=== PATIENT | female | born 1985 | race Caucasian/White ===

== ENCOUNTER → 2017-03-31 | Outpatient (CLI) | payer OTHER ==
[2017-03-31 19:15] LABS: BASO # 0.1 10^3/uL (0.0-0.2); BASO % 0.6 % (0.0-1.0); EOS # 0.1 10^3/uL (0.0-0.50); EOS % 1.3 % (0.0-3.0); HEMOGLOBIN 12.2 g/dl (12.0-16.0); IMMATURE GRANULOCYTE # 0.1 10^3/uL (0-0); IMMATURE GRANULOCYTE % 0.8 % (0-0); LYMPH % 23.1 % (24.0-44.0); MEAN CORPUSCULAR HEMOGLOBIN 30.3 pg (27.0-33.0); MEAN CORPUSCULAR HGB CONC 34.9 g/dl (32.0-36.5); MEAN CORPUSCULAR VOLUME 86.8 fl (80.0-96.0); NEUTROPHILS # 5.5 10^3/uL (1.8-7.7); NEUTROPHILS % 63.2 % (36.0-66.0); PLATELET COUNT, AUTOMATED 301 10^3/uL (150-450); RED BLOOD COUNT 4.03 10^6/uL (4.00-5.40); RED CELL DISTRIBUTION WIDTH 13.3 % (11.5-14.5); WHITE BLOOD COUNT 8.7 10^3/uL (4.0-10.0)
[2017-03-31 21:37] LABS: CHLAMYDIA DNA AMPLIFICATION NEGATIVE (NEGATIVE); GC DNA AMPLIFICATION NEGATIVE (NEGATIVE)
[2017-04-01 11:34] LABS: RUBELLA IgG QUALITATIVE IMMUNE (IMMUNE)
[2017-04-01 11:36] LABS: HBsAg Prenatal NEGATIVE (NEGATIVE)
[2017-04-01 12:02] LABS: HEPATITIS C VIRUS ABY INDEX 0.1 INDEX (<0.8)
[2017-04-01 12:03] LABS: HIV 1&2 SCREEN CENTAUR NEGATIVE (NEGATIVE)
== END ==
LOC: M WUC 15:28
DX: Z34.81 Encounter for supervision of other normal pregnancy, first trimester (principal); Z3A.09 9 weeks gestation of pregnancy
CPT/HCPCS: 86762

== ENCOUNTER → 2017-05-16 | Outpatient (CLI) | payer OTHER | LOC: M RAD 12:48 | DX: Z36.89 Encounter for other specified antenatal screening (principal); Z3A.18 18 weeks gestation of pregnancy | CPT/HCPCS: 76811 ==

== ENCOUNTER → 2017-06-06 | Outpatient (CLI) | payer OTHER | LOC: M RAD 17:09 | DX: Z34.82 Encounter for supervision of other normal pregnancy, second trimester (principal); Z3A.21 21 weeks gestation of pregnancy | CPT/HCPCS: 76816 ==

== ENCOUNTER → 2017-07-15 | Outpatient (CLI) | payer OTHER ==
[2017-07-15 07:49] LABS: GLUCOSE, FASTING 80 MG/DL (LESS THAN 95)
[2017-07-15 09:36] LABS: 1 HR GLUCOSE 192 MG/DL (LESS THAN 180)
[2017-07-15 10:15] LABS: 2 HR GLUCOSE 179 MG/DL (LESS THAN 155)
[2017-07-15 11:26] LABS: 3 HR GLUCOSE 101 MG/DL (LESS THAN 140)
== END ==
LOC: M LAB 06:52
DX: Z34.82 Encounter for supervision of other normal pregnancy, second trimester (principal)

== ENCOUNTER → 2017-08-17 | Outpatient (CLI) | payer OTHER | LOC: M RAD 18:03 | DX: O24.410 Gestational diabetes mellitus in pregnancy, diet controlled (principal); Z3A.31 31 weeks gestation of pregnancy | CPT/HCPCS: 76816 ==

== ENCOUNTER → 2017-09-15 | Outpatient (REF) | payer OTHER | LOC: M LAB REF 16:57 | DX: O24.410 Gestational diabetes mellitus in pregnancy, diet controlled (principal) ==

== ENCOUNTER → 2018-06-12 | Outpatient (CLI) | payer OTHER ==
[~2018-06-12] MED LIST: IBUP1TAB7 PO; OXYC1TAB23 PO; PRENTAB29 PO; RANI150T PO; TUMS500C PO
[2018-06-12 12:35] LABS: BASO % 0.5 % (0.0-1.0); EOS # 0.1 10^3/uL (0.0-0.50); HEMATOCRIT 36.7 % (36.0-47.0); HEMOGLOBIN 12.6 g/dl (12.0-15.5); LYMPH # 1.5 10^3/uL (1.5-4.5); LYMPH % 18.9 % (24.0-44.0); MEAN CORPUSCULAR HEMOGLOBIN 29.5 pg (27.0-33.0); MEAN CORPUSCULAR HGB CONC 34.3 g/dl (32.0-36.5); MEAN CORPUSCULAR VOLUME 85.9 fl (80.0-96.0); MONO # 0.7 10^3/uL (0.0-0.8); MONO % 8.2 % (0.0-5.0); NEUTROPHILS # 5.7 10^3/uL (1.8-7.7); PLATELET COUNT, AUTOMATED 281 10^3/uL (150-450); RED BLOOD COUNT 4.27 10^6/uL (4.00-5.40)
[2018-06-12 13:21] LABS: GLUCOSE CHALLENGE TEST 1 HOUR 134 MG/DL (LESS THAN 140)
[2018-06-12 13:23] LABS: RUBELLA IgG QUALITATIVE IMMUNE (IMMUNE)
[2018-06-12 13:52] LABS: HIV 1&2 SCREEN CENTAUR NEGATIVE (NEGATIVE)
[2018-06-12 14:07] LABS: CHLAMYDIA DNA AMPLIFICATION NEGATIVE (NEGATIVE); GC DNA AMPLIFICATION NEGATIVE (NEGATIVE)
== END ==
LOC: M WUC 09:36
PROVIDERS: ATTEND Advanced Practice Midwife
DX: O34.211 Maternal care for low transverse scar from previous cesarean delivery (principal); Z3A.01 Less than 8 weeks gestation of pregnancy

== ENCOUNTER → 2018-06-27 | Outpatient (REF) | payer OTHER ==
[2018-06-29 14:14] LABS: HPV HYBRID CAPTURE II Negative (Negative)
== END ==
LOC: M LAB REF 17:23
PROVIDERS: ATTEND Obstetrics & Gynecology
DX: Z12.4 Encounter for screening for malignant neoplasm of cervix (principal)
CPT/HCPCS: 87624; G0123

== ENCOUNTER → 2018-07-14 | Outpatient (CLI) | payer OTHER | LOC: M LAB 06:59 | PROVIDERS: ATTEND Advanced Practice Midwife | DX: O34.211 Maternal care for low transverse scar from previous cesarean delivery (principal); Z3A.00 Weeks of gestation of pregnancy not specified ==

== ENCOUNTER → 2018-09-08 | Outpatient (CLI) | payer OTHER ==
--- NOTE | 2018-09-08 13:37 | REP ---
OBSTETRIC SONOGRAPHY: HISTORY: Supervision of . Maternal diabetes in . Second trimester study. For anatomy. FINDINGS: Scanning through the gravid uterus demonstrate a viable single intrauterine gestation in a cephalic lie. motion is observed and heart rate is recorded at 136 beats per minute. A posterior grade 1 placenta is seen without evidence of previa or abruption. Amniotic fluid is subjectively normal. Closed cervical length is measured at 5.2 cm viewed transabdominally. No extrauterine abnormality is observed. No anomaly is seen. The following anatomic structures are identified and felt to be sonographically unremarkable: cranium, choroid plexus, cavum, cerebellum and posterior fossa, face and profile, lungs, four-chamber heart with left and right ventricular outflow tract views, diaphragm, left-sided stomach, abdominal wall cord insertion, three-vessel cord, kidneys and bladder, spine, upper and lower extremities. Biometry Chart: BPD 5.3 cm = 22 weeks 0 days HC 19.8 cm = 22 weeks 0 days AC 18.0 cm = 22 weeks 6 days FL 3.7 cm = 21 weeks 6 days HL 3.8 cm = 23 weeks 2 days HC/AC ratio normal 1.10. Cephalic index normal 0.73. Estimated weight 497 grams, 1 pound 1 ounce, 57th percentile for 22 weeks 0 days. IMPRESSION: Viable single intrauterine gestation at 22 weeks 3 days by today's composite sonographic criteria. KRYSTIN by today's sonography January 09, 2019. Electronically Signed by Ibrahima Batres MD 09/08/2018 03:11 P
== END ==
LOC: M RAD 10:42
PROVIDERS: ATTEND Specialist
DX: O24.912 Unspecified diabetes mellitus in pregnancy, second trimester (principal); Z3A.22 22 weeks gestation of pregnancy

== ENCOUNTER → 2018-10-11 | Outpatient (CLI) | payer OTHER ==
[2018-10-11 13:06] LABS: BASO % 0.3 % (0.0-1.0); EOS # 0.1 10^3/uL (0.0-0.50); EOS % 0.7 % (0.0-3.0); HEMOGLOBIN 11.5 g/dl (12.0-15.5); LYMPH # 1.4 10^3/uL (1.5-4.5); LYMPH % 18.9 % (24.0-44.0); MEAN CORPUSCULAR HEMOGLOBIN 30.7 pg (27.0-33.0); MEAN CORPUSCULAR HGB CONC 33.8 g/dl (32.0-36.5); MEAN CORPUSCULAR VOLUME 90.9 fl (80.0-96.0); MONO # 0.7 10^3/uL (0.0-0.8); MONO % 9.2 % (0.0-5.0); NEUTROPHILS # 5.1 10^3/uL (1.8-7.7); NEUTROPHILS % 70.3 % (36.0-66.0); PLATELET COUNT, AUTOMATED 251 10^3/uL (150-450); RED BLOOD COUNT 3.74 10^6/uL (4.00-5.40); WHITE BLOOD COUNT 7.3 10^3/uL (4.0-10.0)
== END ==
LOC: M WUC 09:15
PROVIDERS: ATTEND Advanced Practice Midwife
DX: O24.112 Pre-existing type 2 diabetes mellitus, in pregnancy, second trimester (principal); Z3A.00 Weeks of gestation of pregnancy not specified

== ENCOUNTER → 2018-12-11 | Outpatient (CLI) | payer OTHER ==
[~2018-12-11] MED LIST changes: +IBUP80TA PO; +SERT50TA29 PO
--- NOTE | 2018-12-12 05:02 | REP ---
Clinical: Growth evaluation Comparison: 09/08/2018 . Findings: Examination demonstrates a single live intrauterine in cephalic presentation. motion is identified by technologist. Placenta is noted posterior and grade one without evidence for placenta previa or abruption. Amniotic fluid volume is normal. Cervix measures 3.0 cm in length and appears closed. No evidence for nuchal cord. Gestational age by LMP 35 weeks 3 days with KRYSTIN 01/12/2019 . Gestational age by current measurements 37 weeks 0 days with KRYSTIN 01/01/2019 . FHR equals 158 beats per minute. BPD 9.2 cm 37 weeks 3 days HC 33.7 cm 38 weeks 5 days (greater than 95th percentile) AC 33.5 cm 37 weeks 3 days FL 7.0 cm 35 weeks 6 days HL 6.2 cm 35 weeks 5 days HC/AC ratio 1.01 Estimated weight 3138 grams ( 82nd percentile). Amniotic fluid index: 17.5 cm (7.8 - 24.9) Umbilical cord SD ratio: 2.07 (2.00 - 3.00). Impression: Single live advanced gestation in cephalic presentation. Estimated weight remains in normal range. Electronically Signed by Yan Lam MD 12/12/2018 04:54 A
== END ==
LOC: M RAD 06:16
PROVIDERS: ATTEND Advanced Practice Midwife
DX: O24.113 Pre-existing type 2 diabetes mellitus, in pregnancy, third trimester (principal); O26.843 Uterine size-date discrepancy, third trimester; Z3A.35 35 weeks gestation of pregnancy

== ENCOUNTER → 2018-12-19 | Outpatient (REF) | payer OTHER ==
[~2018-12-19] MED LIST changes: -IBUP80TA PO; -SERT50TA29 PO
== END ==
LOC: M LAB REF 12:58
PROVIDERS: ATTEND Specialist
DX: Z36.85 Encounter for antenatal screening for Streptococcus B (principal); O24.113 Pre-existing type 2 diabetes mellitus, in pregnancy, third trimester; Z3A.00 Weeks of gestation of pregnancy not specified

== ENCOUNTER 2019-01-05 05:24 | Inpatient (IN) | payer OTHER ==
[~2019-01-05] VITALS: Ht 165.1 cm; Wt 91.0 kg
[2019-01-05] MEDS ORDERED: LR 1,000 ML IV SCH ×2 (05:45→09:15)
[2019-01-05] MEDS ORDERED: BICITRA 30ML SOLN UDC PO ONE (05:45)
[2019-01-05] MEDS ORDERED: ceFAZolin SOD 2 GM in IV 1 EA IV ONE (05:45)
[2019-01-05] MEDS ORDERED: LR 800 ML IV ONE (05:45)
[2019-01-05 07:02] LABS: HEMATOCRIT 37.6 % (36.0-47.0); HEMOGLOBIN 12.7 g/dl (12.0-15.5); MEAN CORPUSCULAR HEMOGLOBIN 30.3 pg (27.0-33.0); MEAN CORPUSCULAR HGB CONC 33.8 g/dl (32.0-36.5); MEAN CORPUSCULAR VOLUME 89.7 fl (80.0-96.0); PLATELET COUNT, AUTOMATED 236 10^3/uL (150-450); RED BLOOD COUNT 4.19 10^6/uL (4.00-5.40); WHITE BLOOD COUNT 8.6 10^3/uL (4.0-10.0)
[2019-01-05] MEDS ORDERED: OXYC1TAB23 PO (07:22)
[2019-01-05] MEDS ORDERED: MORPHINE PRES-FREE INJ 10 MG/10 ML VIAL (J2274) As Ordered ONE (07:27)
[2019-01-05] MEDS ORDERED: fentaNYL 100 MCG/2 ML INJECTION (J3010) As Ordered ONE (08:18)
[2019-01-05] MEDS ORDERED: ONDANSETRON 4MG/2ML VIAL (J2405) As Ordered ONE (08:19)
[2019-01-05] MEDS ORDERED: PERCOCET 5MG/325MG TAB PO PRN ×2 (08:45)
[2019-01-05] MEDS ORDERED: ONDANSETRON 4MG/2ML VIAL (J2405) IV PRN ×2 (08:45→09:15)
[2019-01-05] MEDS: PRENATAL VITAMINS CHEWABLE TABLET PO SCH (09:00)
[2019-01-05] MEDS ORDERED: MEASLES,MUMPS,RUBELLA VACCINE INJ (MMR-II) (90707) SC SCH (09:00)
[2019-01-05] MEDS ORDERED: RHOGAM 300 MCG (1500 IU) INJ (J2790) IM SCH (09:00)
[2019-01-05] MEDS ORDERED: METOCLOPRAMIDE INJ 10MG/2ML VIAL (J2765) IV PRN (09:15)
[2019-01-05] MEDS ORDERED: fentaNYL 100 MCG/2 ML INJECTION (J3010) IV PRN (09:15)
[2019-01-05] MEDS ORDERED: oxyCODONE 5MG TAB PO PRN (09:15)
[2019-01-05] MEDS ORDERED: KETOROLAC 30 MG/ML VIAL (J1885) As Ordered ONE (09:17)
[2019-01-05] MEDS: KETOROLAC 30 MG/ML VIAL (J1885) IV SCH ×3 (09:19→20:48)
[2019-01-05 10:30] VITALS: BP 109/55
[2019-01-05 11:00] VITALS: BP 119/70
[2019-01-05 12:00] VITALS: BP 107/61
[2019-01-05 13:00] VITALS: BP 118/58
[2019-01-05 14:00] VITALS: BP 107/55
--- NOTE | 2019-01-05 15:37 | RO ---
DATE OF PROCEDURE: 01/05/2019 PREPROCEDURE DIAGNOSIS: 39 weeks, prior section times one. POSTPROCEDURE DIAGNOSIS: 39 weeks, prior section times one. PROCEDURE: Repeat lower transverse section. SURGEON: Dr. Danish Adan. FINE HAIRER: Criss Elizabeth DO ANESTHESIA: Spinal. ESTIMATED BLOOD LOSS: 600 mL. URINE OUTPUT: 100 mL. FINDINGS: 7 pound 8 ounce female . scores 8 and 9. Vertex. Normal uterus, fallopian tubes and ovaries. DESCRIPTION OF PROCEDURE: Patient taken to the operating room where spinal anesthesia was induced. She was prepped and draped in a sterile fashion in the supine position. A Perez catheter was placed. A Pfannenstiel skin incision made with a scalpel and carried through the fascia. The fascia was nicked and extended. The fascia was dissected off the rectus muscles. The peritoneal cavity was entered. A bladder flap was created. A Mobius retractor was placed. Curvilinear incision was made in the lower uterine segment until bulging membranes were noted. This was extended manually. Membranes were ruptured with clear fluid. The was delivered from the vertex position without difficulty. The cord was doubly clamped and cut. The was handed off to the awaiting nurses. The placenta was expressed. The uterus was closed in two layers with 0 Vicryl in a running lock fashion. The peritoneum was closed with #2-0 Vicryl in a running fashion. The fascia was closed with #0 Vicryl in a running fashion. Deep layer was irrigated and closed with #2-0 chromic. The skin was closed with #4-0 Monocryl subcuticular sutures. Sponge, instrument and needle counts were correct.
[2019-01-05 18:00] VITALS: BP 107/61
[2019-01-05] MEDS ORDERED: DOCUSATE SODIUM 100 MG CAP PO PRN (21:00)
[2019-01-06] MEDS: KETOROLAC 30 MG/ML VIAL (J1885) IV SCH (03:07)
[2019-01-06 05:53] VITALS: BP 107/61
[2019-01-06 06:55] LABS: HEMATOCRIT 31.3 % (36.0-47.0); HEMOGLOBIN 11.1 g/dl (12.0-15.5); MEAN CORPUSCULAR HEMOGLOBIN 31.1 pg (27.0-33.0); MEAN CORPUSCULAR HGB CONC 35.5 g/dl (32.0-36.5); MEAN CORPUSCULAR VOLUME 87.7 fl (80.0-96.0); PLATELET COUNT, AUTOMATED 208 10^3/uL (150-450); RED BLOOD COUNT 3.57 10^6/uL (4.00-5.40); WHITE BLOOD COUNT 11.3 10^3/uL (4.0-10.0)
[2019-01-06] MEDS: PRENATAL VITAMINS CHEWABLE TABLET PO SCH (08:16)
[2019-01-06] MEDS: IBUPROFEN 800 MG TAB PO SCH ×2 (10:34→18:40)
[2019-01-06] MEDS: SERTRALINE HCL 50 MG TAB PO SCH (12:16)
[2019-01-06 18:12] VITALS: BP 113/74
[2019-01-06 22:35] VITALS: BP 118/71
[2019-01-07 02:22] VITALS: BP 115/76
[2019-01-07] MEDS: IBUPROFEN 800 MG TAB PO SCH ×2 (02:32→11:28)
[2019-01-07 06:20] VITALS: BP 120/74
[2019-01-07] MEDS: PRENATAL VITAMINS CHEWABLE TABLET PO SCH (08:03)
[2019-01-07] MEDS: SERTRALINE HCL 50 MG TAB PO SCH (08:03)
[2019-01-07] MEDS ORDERED: IBUP80TA PO (09:27)
[2019-01-07] MEDS ORDERED: SERT-155 PO (09:27)
== END 2019-01-07 14:35 | disposition home or self-care (01) | DRG 773 ==
LOC: M LDI 05:24 → M OBS 10:30
PROVIDERS: ADMIT Specialist; ATTEND Specialist
PROC: 10D00Z1 Extraction of Products of Conception, Low, Open Approach (ICD-10-PCS; principal; 2019-01-05 07:30)
DX: O34.211 Maternal care for low transverse scar from previous cesarean delivery (principal); Z37.0 Single live birth; Z3A.39 39 weeks gestation of pregnancy

== ENCOUNTER → 2020-06-07 | Outpatient (CLI) | payer OTHER ==
[~2020-06-07] MED LIST changes: +IBUP80TA PO; +SERT50TA29 PO
[2020-06-07 09:51] LABS: BASO % 0.6 % (0.0-1.0); EOS # 0.1 10^3/uL (0.0-0.5); EOS % 1.5 % (0.0-3.0); HEMOGLOBIN 12.9 g/dl (12.0-15.5); LYMPH # 1.8 10^3/uL (1.5-5.0); LYMPH % 28.2 % (24.0-44.0); MEAN CORPUSCULAR HEMOGLOBIN 29.3 pg (27.0-33.0); MEAN CORPUSCULAR HGB CONC 33.1 g/dl (32.0-36.5); MEAN CORPUSCULAR VOLUME 88.6 fl (80.0-96.0); MONO # 0.7 10^3/uL (0.0-0.8); MONO % 11.1 % (2.0-8.0); NEUTROPHILS # 3.8 10^3/uL (1.5-8.5); NEUTROPHILS % 58.3 % (36.0-66.0); PLATELET COUNT, AUTOMATED 298 10^3/uL (150-450); WHITE BLOOD COUNT 6.5 10^3/uL (4.0-10.0)
[2020-06-07 10:19] LABS: HEMOGLOBIN A1c 5.1 %
[2020-06-07 10:23] LABS: ALBUMIN 3.8 GM/DL (3.2-5.2); ALT/SGPT 54 U/L (12-78); BILIRUBIN,TOTAL 0.2 MG/DL (0.2-1.0); BLOOD UREA NITROGEN 15 MG/DL (7-18); CALCIUM LEVEL 9.4 MG/DL (8.5-10.1); CARBON DIOXIDE LEVEL 28 MEQ/L (21-32); CHLORIDE LEVEL 106 MEQ/L (98-107); CREATININE FOR GFR 0.87 MG/DL (0.55-1.30); FREE T4 0.89 NG/DL (0.76-1.46); GLOMERULAR FILTRATION RATE > 60.0 (>60); GLUCOSE, FASTING 80 MG/DL (70-100); POTASSIUM SERUM 4.3 MEQ/L (3.5-5.1); SODIUM LEVEL 140 MEQ/L (136-145); TOTAL PROTEIN 7.1 GM/DL (6.4-8.2)
[2020-06-09 10:51] LABS: TOTAL 25(OH) VITAMIN D 24.6 NG/ML (30.0-100.0)
== END ==
LOC: M LAB 08:49
PROVIDERS: ATTEND Physician Assistant
DX: Z13.29 Encounter for screening for other suspected endocrine disorder (principal)